=== PATIENT | female | born 1955 | race Caucasian/White ===

== ENCOUNTER 2020-09-20 22:29 | Inpatient (IN) | payer OTHER ==
[~2020-09-20] VITALS: Ht 165.1 cm; Wt 109.4 kg
--- NOTE | 2020-09-20 22:35 | NUR ---
Pt arrives from [place] via [facility]. Went to [place] urgent [facility] yesterday and was sent home with meds and diagnosis of bronchitis and kidney infection. Taking a shower that night pt said her right arm went suddenly numb, painful, and turned purple. 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 Was given heparin bolus and started on heparin drip. Satting well on RA, BP stable, IV in place, hooked up to monitor, MD at bedside. Presents with JVD distention on right side. Pt denies needs at this time.
[2020-09-20 23:25] LABS: BASOPHILS % (AUTO) 1 % (0-1); EOSINOPHILS % (AUTO) 1 % (1-7); LYMPHOCYTES % (AUTO) 6 % (22-44); MEAN CORPUSCULAR HEMOGLOBIN 29.4 pg (27.0-34.8); MEAN PLATELET VOLUME 7.8 fL (7.4-10.4); MONOCYTES % (AUTO) 9 % (2-9); NEUTROPHILS % (AUTO) 84 % (42-75); PLATELET COUNT 398 x10^3/uL (130-400); RED BLOOD COUNT 4.21 x10^6/uL (3.82-5.3); RED CELL DISTRIBUTION WIDTH 14.8 % (9.6-15.2)
[2020-09-20 23:26] LABS: ANION GAP 4 mmol/L (5-15); CALCIUM 8.5 mg/dL (8.5-10.1); CHLORIDE 107 mmol/L (98-107); CREATININE 0.62 mg/dL (0.55-1.02)
[2020-09-20 23:28] LABS: MD NO
[2020-09-20 23:31] LABS: INTERNATIONAL NORMALIZED RATIO 1.28 (0.93-1.1); PROTHROMBIN TIME 13.6 Seconds (9.6-11.5)
--- NOTE | 2020-09-20 23:49 | NUR ---
2nd IV started
[2020-09-21] MEDS ORDERED: MORPHINE SULFATE 4 MG/ML, 1ML IVPush PRN
[2020-09-21] MEDS ORDERED: PLEASE ENTER ALLERGIES MC SCH (00:30)
--- NOTE | 2020-09-21 00:41 | NUR ---
Report called to Kim.
--- NOTE | 2020-09-21 00:45 | NUR ---
Pt being transported to room 493 with tech and cardica monitor.
[2020-09-21 00:59] VITALS: BP 123/80
[2020-09-21] MEDS ORDERED: METOCLOPRAMIDE 5 MG/ML, 2ML IVPush PRN (01:00)
[2020-09-21] MEDS ORDERED: MELATONIN 5 MG TABLET PO PRN (01:00)
[2020-09-21] MEDS ORDERED: morphine SULFATE 10 MG/ML, 1ML IVPush PRN (01:00)
[2020-09-21] MEDS ORDERED: POLYETHYLENE GLYCOL 17 GM PACKET PO PRN (01:00)
[2020-09-21] MEDS ORDERED: PLEASE ENTER ACCURATE WEIGHT MC SCH (01:00)
[2020-09-21] MEDS ORDERED: PROMETHAZINE 25 MG/ML, 1ML IM PRN (01:00)
[2020-09-21] MEDS ORDERED: LABETALOL 5MG/ML, 20ML IVPush PRN (01:00)
[2020-09-21] MEDS ORDERED: ONDANSETRON 2MG/ML, 2ML IVPush PRN ×2 (01:00)
[2020-09-21] MEDS ORDERED: DOCUSATE 100 MG CAPSULE PO PRN (01:00)
[2020-09-21] MEDS ORDERED: hydrALAzine 20 MG/ML, 1ML IVPush PRN (01:00)
[2020-09-21] MEDS ORDERED: LACTATED RINGERS 1,000 ML IV SCH (01:00)
[2020-09-21] MEDS ORDERED: HEPARIN 5,000 UNITS/ML, 1ML IV ONE (01:30)
[2020-09-21] MEDS: HEPARIN 25,000 UNITS/250ML PMX 250 ML IV PRN (01:53)
[2020-09-21] MEDS: ACETAMINOPHEN 325 MG TABLET PO PRN ×2 (02:06→16:11)
[2020-09-21 04:31] VITALS: BP 130/86
[2020-09-21] MEDS: PANTOPRAZOLE 20MG TABLET PO SCH ×2 (05:20→16:05)
[2020-09-21] MEDS ORDERED: OMNIPAQUE 350 MG/ML, 150 ML BOTTLE ONE (08:30)
[2020-09-21] MEDS: SENNA/DOCUSATE TABLET PO SCH (09:15)
[2020-09-21] MEDS: HEPARIN 5,000 UNITS/ML, 1ML IV PRN ×3 (09:15→22:22)
[2020-09-21 10:10] VITALS: BP 126/72
[2020-09-21 13:43] VITALS: BP 114/75
[2020-09-21] MEDS: HYDROcodone/APAP 5/325 TABLET PO PRN (18:28)
[2020-09-21 19:22] VITALS: BP 128/87
[2020-09-22] MEDS: HEPARIN 25,000 UNITS/250ML PMX 250 ML IV PRN ×2 (00:44→22:22)
[2020-09-22 01:46] VITALS: BP 122/84
[2020-09-22 04:50] LABS: BASOPHILS % (AUTO) 1 % (0-1); EOSINOPHILS % (AUTO) 4 % (1-7); LYMPHOCYTES % (AUTO) 11 % (22-44); MEAN CORPUSCULAR HEMOGLOBIN 29.8 pg (27.0-34.8); MEAN CORPUSCULAR HGB CONC 33.3 g/dL (32.4-35.8); MEAN PLATELET VOLUME 7.5 fL (7.4-10.4); MONOCYTES % (AUTO) 11 % (2-9); NEUTROPHILS % (AUTO) 74 % (42-75); PLATELET COUNT 431 x10^3/uL (130-400); RED CELL DISTRIBUTION WIDTH 14.7 % (9.6-15.2)
[2020-09-22 04:51] LABS: MD NO
[2020-09-22 04:58] LABS: CHLORIDE 107 mmol/L (98-107)
[2020-09-22 05:13] LABS: ANION GAP 5 mmol/L (5-15); CALCIUM 8.9 mg/dL (8.5-10.1); CREATININE 0.67 mg/dL (0.55-1.02)
[2020-09-22] MEDS: PANTOPRAZOLE 20MG TABLET PO SCH ×2 (06:00→15:15)
[2020-09-22 07:58] VITALS: BP 115/71
[2020-09-22] MEDS: SENNA/DOCUSATE TABLET PO SCH (08:23)
[2020-09-22] MEDS: HYDROcodone/APAP 5/325 TABLET PO PRN ×2 (09:43→18:02)
[2020-09-22 12:17] VITALS: BP 119/78
[2020-09-22] MEDS: HEPARIN 5,000 UNITS/ML, 1ML IV PRN ×2 (15:20→22:22)
[2020-09-22 20:00] VITALS: BP 116/68
[2020-09-22] MEDS: ONDANSETRON 2MG/ML, 2ML IVPush PRN (21:41)
[2020-09-23 02:00] VITALS: BP 122/74
[2020-09-23 05:25] LABS: BASOPHILS % (AUTO) 1 % (0-1); EOSINOPHILS % (AUTO) 4 % (1-7); LYMPHOCYTES % (AUTO) 9 % (22-44); MD NO; MEAN CORPUSCULAR HEMOGLOBIN 29.7 pg (27.0-34.8); MEAN CORPUSCULAR HGB CONC 33.3 g/dL (32.4-35.8); MEAN PLATELET VOLUME 7.4 fL (7.4-10.4); MONOCYTES % (AUTO) 11 % (2-9); NEUTROPHILS % (AUTO) 77 % (42-75); PLATELET COUNT 418 x10^3/uL (130-400); RED BLOOD COUNT 4.01 x10^6/uL (3.82-5.3); RED CELL DISTRIBUTION WIDTH 14.4 % (9.6-15.2)
[2020-09-23 05:37] LABS: ANION GAP 2 mmol/L (5-15); CALCIUM 8.4 mg/dL (8.5-10.1); CHLORIDE 100 mmol/L (98-107); CREATININE 0.67 mg/dL (0.55-1.02)
[2020-09-23] MEDS: PANTOPRAZOLE 20MG TABLET PO SCH ×2 (06:00→16:01)
[2020-09-23 08:33] VITALS: BP 130/73
[2020-09-23] MEDS ORDERED: MIDAZOLAM 1 MG/ML, 5ML ONE ×2 (09:15)
[2020-09-23] MEDS ORDERED: LIDOCAINE 1%, 10ML ONE (09:15)
[2020-09-23] MEDS ORDERED: FLUMAZENIL 0.1 MG/1 ML, 5ML ONE (09:16)
[2020-09-23] MEDS ORDERED: NALOXONE 1 MG/ML, 2ML ONE (09:16)
[2020-09-23] MEDS ORDERED: FENTANYL PF 100 MCG/2ML ONE (09:16)
[2020-09-23] MEDS: SENNA/DOCUSATE TABLET PO SCH (10:28)
[2020-09-23] MEDS: ACETAMINOPHEN 325 MG TABLET PO PRN (12:38)
[2020-09-23 13:33] VITALS: BP 143/80
[2020-09-23 19:37] VITALS: BP 123/71
[2020-09-23] MEDS: HEPARIN 5,000 UNITS/ML, 1ML IV PRN (21:04)
[2020-09-23] MEDS: HEPARIN 25,000 UNITS/250ML PMX 250 ML IV PRN (21:05)
[2020-09-24 01:02] VITALS: BP 116/77
[2020-09-24 03:45] LABS: BASOPHILS % (AUTO) 1 % (0-1); EOSINOPHILS % (AUTO) 2 % (1-7); LYMPHOCYTES % (AUTO) 7 % (22-44); MEAN CORPUSCULAR HEMOGLOBIN 29.4 pg (27.0-34.8); MEAN CORPUSCULAR HGB CONC 33.3 g/dL (32.4-35.8); MEAN PLATELET VOLUME 7.5 fL (7.4-10.4); MONOCYTES % (AUTO) 11 % (2-9); NEUTROPHILS % (AUTO) 80 % (42-75); PLATELET COUNT 416 x10^3/uL (130-400); RED BLOOD COUNT 4.38 x10^6/uL (3.82-5.3); RED CELL DISTRIBUTION WIDTH 14.5 % (9.6-15.2)
[2020-09-24 03:46] LABS: MD NO
[2020-09-24] MEDS: HEPARIN 5,000 UNITS/ML, 1ML IV PRN (04:03)
[2020-09-24] MEDS: ACETAMINOPHEN 325 MG TABLET PO PRN ×2 (04:16→08:02)
[2020-09-24] MEDS: PANTOPRAZOLE 20MG TABLET PO SCH ×2 (05:19→18:04)
[2020-09-24 07:08] VITALS: BP 108/70
[2020-09-24] MEDS: PROMETHAZINE 25 MG/ML, 1ML IM PRN (08:00)
[2020-09-24] MEDS: SENNA/DOCUSATE TABLET PO SCH (11:14)
[2020-09-24] MEDS: HEPARIN 25,000 UNITS/250ML PMX 250 ML IV PRN (11:15)
[2020-09-24 13:14] VITALS: BP 118/72
[2020-09-24 18:35] VITALS: BP 137/78
[2020-09-24 21:30] VITALS: BP 134/80
[2020-09-25] VITALS (8 sets, daily range): BP systolic 113–141; BP diastolic 70–80
[2020-09-25] MEDS: HEPARIN 25,000 UNITS/250ML PMX 250 ML IV PRN ×2 (00:27→11:54)
[2020-09-25] MEDS: PANTOPRAZOLE 20MG TABLET PO SCH ×2 (05:53→16:58)
[2020-09-25] MEDS: ACETAMINOPHEN 325 MG TABLET PO PRN ×2 (08:31→19:51)
[2020-09-25] MEDS: SENNA/DOCUSATE TABLET PO SCH (08:33)
[2020-09-25] MEDS: TRAZODONE 50MG TABLET PO PRN (19:51)
[2020-09-26] VITALS (10 sets, daily range): BP systolic 108–126; BP diastolic 70–81
[2020-09-26] MEDS: HEPARIN 25,000 UNITS/250ML PMX 250 ML IV PRN ×2 (00:50→14:35)
[2020-09-26 05:47] LABS: ANION GAP 3 mmol/L (5-15); CALCIUM 9.4 mg/dL (8.5-10.1); CHLORIDE 101 mmol/L (98-107); CREATININE 0.55 mg/dL (0.55-1.02)
[2020-09-26] MEDS: PANTOPRAZOLE 20MG TABLET PO SCH ×2 (05:50→17:46)
[2020-09-26 06:03] LABS: BASOPHILS % (AUTO) 1 % (0-1); EOSINOPHILS % (AUTO) 5 % (1-7); LYMPHOCYTES % (AUTO) 10 % (22-44); MD NO; MEAN CORPUSCULAR HEMOGLOBIN 29.7 pg (27.0-34.8); MEAN CORPUSCULAR HGB CONC 33.6 g/dL (32.4-35.8); MEAN PLATELET VOLUME 7.5 fL (7.4-10.4); MONOCYTES % (AUTO) 11 % (2-9); NEUTROPHILS % (AUTO) 73 % (42-75); PLATELET COUNT 423 x10^3/uL (130-400); RED BLOOD COUNT 4.38 x10^6/uL (3.82-5.3); RED CELL DISTRIBUTION WIDTH 14.6 % (9.6-15.2)
[2020-09-26] MEDS: SENNA/DOCUSATE TABLET PO SCH (08:14)
[2020-09-26] MEDS: PROMETHAZINE 25 MG/ML, 1ML IM PRN (08:15)
[2020-09-26] MEDS: HYDROcodone/APAP 5/325 TABLET PO PRN ×3 (08:16→20:30)
[2020-09-26] MEDS: ACETAMINOPHEN 325 MG TABLET PO PRN (11:02)
[2020-09-26] MEDS ORDERED: HEPARIN 25,000 UNITS/250ML PMX 250 ML IV PRN (15:30)
[2020-09-26] MEDS: ONDANSETRON 2MG/ML, 2ML IVPush PRN (20:29)
[2020-09-26] MEDS: TRAZODONE 50MG TABLET PO PRN (20:29)
[2020-09-26] MEDS: APIXABAN 5 MG TABLET PO SCH (20:30)
[2020-09-26] MEDS ORDERED: APIXABAN 5 MG TABLET PO SCH (21:00)
[2020-09-27] VITALS (7 sets, daily range): BP systolic 104–118; BP diastolic 45–77
[2020-09-27] MEDS: ONDANSETRON 2MG/ML, 2ML IVPush PRN ×2 (02:32→10:41)
[2020-09-27] MEDS: HYDROcodone/APAP 5/325 TABLET PO PRN ×3 (02:33→22:51)
[2020-09-27] MEDS: PANTOPRAZOLE 20MG TABLET PO SCH ×3 (05:45→15:34)
[2020-09-27] MEDS: APIXABAN 5 MG TABLET PO SCH ×2 (09:46→21:08)
[2020-09-27] MEDS: SENNA/DOCUSATE TABLET PO SCH (09:46)
[2020-09-27] MEDS: DEXAMETHASONE 4 MG TABLET PO SCH (21:07)
[2020-09-28 00:20] VITALS: BP 130/75
[2020-09-28] MEDS: TRAZODONE 50MG TABLET PO PRN (00:52)
[2020-09-28 04:55] VITALS: BP 124/79
[2020-09-28 05:22] LABS: ANION GAP 3 mmol/L (5-15); CALCIUM 9.3 mg/dL (8.5-10.1); CHLORIDE 99 mmol/L (98-107)
[2020-09-28 05:23] LABS: CREATININE 0.65 mg/dL (0.55-1.02)
[2020-09-28] MEDS: PANTOPRAZOLE 20MG TABLET PO SCH ×2 (06:04→15:28)
[2020-09-28 07:07] LABS: BASOPHILS % (AUTO) 1 % (0-1); EOSINOPHILS % (AUTO) 0 % (1-7); LYMPHOCYTES % (AUTO) 4 % (22-44); MEAN CORPUSCULAR HEMOGLOBIN 29.7 pg (27.0-34.8); MEAN CORPUSCULAR HGB CONC 33.3 g/dL (32.4-35.8); MEAN PLATELET VOLUME 7.3 fL (7.4-10.4); MONOCYTES % (AUTO) 4 % (2-9); NEUTROPHILS % (AUTO) 91 % (42-75); PLATELET COUNT 335 x10^3/uL (130-400); RED BLOOD COUNT 4.56 x10^6/uL (3.82-5.3); RED CELL DISTRIBUTION WIDTH 14.1 % (9.6-15.2)
[2020-09-28 07:21] LABS: MD SCAN
[2020-09-28] MEDS: APIXABAN 5 MG TABLET PO SCH ×2 (07:55→19:48)
[2020-09-28] MEDS: DEXAMETHASONE 4 MG TABLET PO SCH (07:55)
[2020-09-28] MEDS: SENNA/DOCUSATE TABLET PO SCH (07:56)
[2020-09-28 08:10] VITALS: BP 134/77
[2020-09-28] MEDS ORDERED: DIPHENHYDRAMINE 50 MG/ML, 1ML IVPush ONE (09:30)
[2020-09-28] MEDS ORDERED: ONDANSETRON 16 MG, DEXAMETHASONE 12 MG in SODIUM CHLORIDE 0.9% 50 ML IVPB ONE (09:30)
[2020-09-28] MEDS ORDERED: FAMOTIDINE 20 MG/2 ML IVPush ONE (09:30)
[2020-09-28] MEDS ORDERED: [UNRECOGNIZED DRUG - OTHER] IV PRN (10:00)
[2020-09-28] MEDS ORDERED: SODIUM CHLORIDE 0.9% IV ONE ×2 (10:00→13:00)
[2020-09-28] MEDS ORDERED: PACLITAXEL IV ONE (10:00)
[2020-09-28 12:24] VITALS: BP 122/77
[2020-09-28] MEDS ORDERED: CARBOPLATIN IV ONE (13:00)
[2020-09-28 18:25] VITALS: BP_SYST 117; BP_SYST 130; BP_DIAS 60; BP_DIAS 74
[2020-09-28] MEDS: ONDANSETRON 2MG/ML, 2ML IVPush PRN (19:47)
[2020-09-28] MEDS: HYDROcodone/APAP 5/325 TABLET PO PRN (19:48)
[2020-09-29 00:45] VITALS: BP 112/79
[2020-09-29] MEDS: DEXAMETHASONE 4 MG TABLET PO SCH ×3 (05:55→17:47)
[2020-09-29] MEDS: PANTOPRAZOLE 20MG TABLET PO SCH ×2 (05:55→16:13)
[2020-09-29 07:51] LABS: BASOPHILS % (AUTO) 1 % (0-1); EOSINOPHILS % (AUTO) 0 % (1-7); LYMPHOCYTES % (AUTO) 5 % (22-44); MEAN CORPUSCULAR HGB CONC 32.6 g/dL (32.4-35.8); MEAN PLATELET VOLUME 7.8 fL (7.4-10.4); MONOCYTES % (AUTO) 6 % (2-9); NEUTROPHILS % (AUTO) 89 % (42-75); PLATELET COUNT 290 x10^3/uL (130-400); RED BLOOD COUNT 4.47 x10^6/uL (3.82-5.3); RED CELL DISTRIBUTION WIDTH 14.3 % (9.6-15.2)
[2020-09-29 08:02] LABS: ALANINE AMINOTRANSFERASE 33 U/L (12-78); ALBUMIN 2.8 g/dL (3.4-5.0); ANION GAP 4 mmol/L (5-15); CALCIUM 9.2 mg/dL (8.5-10.1); CHLORIDE 98 mmol/L (98-107); CREATININE 0.63 mg/dL (0.55-1.02)
[2020-09-29 08:04] LABS: ALKALINE PHOSPHATASE 52 U/L (45-117); BILIRUBIN,TOTAL 0.2 mg/dL (0.2-1.0)
[2020-09-29 08:11] VITALS: BP 130/85
[2020-09-29 08:14] LABS: MD SCAN
[2020-09-29] MEDS: APIXABAN 5 MG TABLET PO SCH ×2 (08:47→20:39)
[2020-09-29] MEDS: HYDROcodone/APAP 5/325 TABLET PO PRN ×4 (08:47→19:37)
[2020-09-29] MEDS: ONDANSETRON ODT 4 MG PO SCH ×4 (08:47→20:39)
[2020-09-29] MEDS: SENNA/DOCUSATE TABLET PO SCH (08:47)
[2020-09-29 14:07] VITALS: BP 120/77
[2020-09-29] MEDS: TRAZODONE 50MG TABLET PO PRN (17:58)
[2020-09-29 19:13] VITALS: BP 118/76
[2020-09-29] MEDS: ONDANSETRON 2MG/ML, 2ML IVPush PRN (19:37)
[2020-09-30] MEDS: DEXAMETHASONE 4 MG TABLET PO SCH ×4 (00:10→16:38)
[2020-09-30] MEDS: ONDANSETRON ODT 4 MG PO SCH ×4 (02:33→21:01)
[2020-09-30 02:52] VITALS: BP 125/86
[2020-09-30] MEDS: PANTOPRAZOLE 20MG TABLET PO SCH ×2 (06:05→16:38)
[2020-09-30 07:45] VITALS: BP 137/86
[2020-09-30] MEDS: APIXABAN 5 MG TABLET PO SCH ×2 (08:14→21:01)
[2020-09-30] MEDS: SENNA/DOCUSATE TABLET PO SCH (08:15)
[2020-09-30] MEDS: HYDROcodone/APAP 5/325 TABLET PO PRN ×2 (08:20→19:24)
[2020-09-30] MEDS: MAGNESIUM HYDROXIDE 8%, 30ML UDC PO SCH (13:25)
[2020-09-30 14:35] VITALS: BP 111/72
[2020-09-30 19:35] VITALS: BP 132/83
[2020-09-30] MEDS: TRAZODONE 50MG TABLET PO PRN (21:01)
[2020-10-01] MEDS: HYDROcodone/APAP 5/325 TABLET PO PRN ×3 (00:38→11:53)
[2020-10-01] MEDS: DEXAMETHASONE 4 MG TABLET PO SCH ×2 (00:38→06:45)
[2020-10-01 00:47] VITALS: BP 120/78
[2020-10-01] MEDS: ONDANSETRON ODT 4 MG PO SCH ×2 (04:13→08:00)
[2020-10-01 05:58] LABS: BASOPHILS % (AUTO) 0 % (0-1); EOSINOPHILS % (AUTO) 0 % (1-7); LYMPHOCYTES % (AUTO) 4 % (22-44); MEAN CORPUSCULAR HEMOGLOBIN 29.3 pg (27.0-34.8); MEAN PLATELET VOLUME 8.2 fL (7.4-10.4); MONOCYTES % (AUTO) 3 % (2-9); NEUTROPHILS % (AUTO) 93 % (42-75); PLATELET COUNT 261 x10^3/uL (130-400); RED BLOOD COUNT 4.49 x10^6/uL (3.82-5.3); RED CELL DISTRIBUTION WIDTH 14.2 % (9.6-15.2)
[2020-10-01 06:02] LABS: MD NO
[2020-10-01 06:11] LABS: CHLORIDE 96 mmol/L (98-107)
[2020-10-01 06:19] LABS: ALANINE AMINOTRANSFERASE 28 U/L (12-78); ALBUMIN 2.8 g/dL (3.4-5.0); ALKALINE PHOSPHATASE 47 U/L (45-117); ANION GAP 7 mmol/L (5-15); BILIRUBIN,TOTAL 0.2 mg/dL (0.2-1.0); CREATININE 0.57 mg/dL (0.55-1.02); TOTAL PROTEIN 7.4 g/dL (6.4-8.2)
[2020-10-01] MEDS: PANTOPRAZOLE 20MG TABLET PO SCH (06:45)
[2020-10-01 07:51] VITALS: BP 128/78
[2020-10-01] MEDS: APIXABAN 5 MG TABLET PO SCH (08:00)
[2020-10-01] MEDS: MAGNESIUM HYDROXIDE 8%, 30ML UDC PO SCH (08:00)
[2020-10-01] MEDS: SENNA/DOCUSATE TABLET PO SCH (08:00)
[2020-10-01] MEDS ORDERED: ONDA4TAB13 PO (08:39)
[2020-10-01] MEDS ORDERED: HYDR-1067 PO (08:39)
[2020-10-01] MEDS ORDERED: TRAZ50TA66 PO (08:39)
[2020-10-01] MEDS ORDERED: PANT20TA4 PO (08:39)
[2020-10-01] MEDS ORDERED: MAGN400O7 PO (08:39)
[2020-10-01] MEDS ORDERED: DEXA4TAB66 PO (08:39)
[2020-10-01] MEDS ORDERED: APIX5TAB PO (08:39)
[2020-10-01] MEDS: ONDANSETRON 2MG/ML, 2ML IVPush PRN (11:54)
== END 2020-10-01 12:24 | DRG 754 ==
LOC: ED 23:15 → EDIP 23:56 → 4EST 09-21 00:48 → 4NW 09-27 14:36
PROVIDERS: ADMIT Family Medicine; ATTEND Internal Medicine
PROC: 0BBC3ZX Excision of Right Upper Lung Lobe, Percutaneous Approach, Diagnostic (ICD-10-PCS; principal; 2020-09-23)
DX: C54.1 Malignant neoplasm of endometrium (principal); I26.99 Other pulmonary embolism without acute cor pulmonale; J96.01 Acute respiratory failure with hypoxia; C34.90 Malignant neoplasm of unspecified part of unspecified bronchus or lung; D68.69 Other thrombophilia; E87.1 Hypo-osmolality and hyponatremia; I50.32 Chronic diastolic (congestive) heart failure; I82.B11 Acute embolism and thrombosis of right subclavian vein; Z68.41 Body mass index [BMI] 40.0-44.9, adult; I82.C11 Acute embolism and thrombosis of right internal jugular vein; I82.210 Acute embolism and thrombosis of superior vena cava; D63.8 Anemia in other chronic diseases classified elsewhere; D72.829 Elevated white blood cell count, unspecified; E66.9 Obesity, unspecified; I27.20 Pulmonary hypertension, unspecified; I77.819 Aortic ectasia, unspecified site; K59.00 Constipation, unspecified; L68.0 Hirsutism; Z79.01 Long term (current) use of anticoagulants; Z79.899 Other long term (current) drug therapy; Z99.81 Dependence on supplemental oxygen
CPT/HCPCS: 36415; 99291; J3490; 32408; 70460; 71275; 74177; 77012; 78582; 80048; 80053; 82040; 83036; 83735; 84443; 85025; 85520; 85610; 85730; 86304; 88305; 88333; 88341; 88342; 93005; 93306; 93356; 99156; 99157; G0378; J1100; J1644; J2250; J2405; J2550; J3010; J9045; J9267; Q0162; Q9967; A9540; A9558; J1200; J2310; J2765; J7040; J7120

== ENCOUNTER 2021-01-14 08:00 | Emergency (ER) | payer OTHER ==
[~2021-01-14] VITALS: Ht 165.1 cm; Wt 73.0 kg
[~2021-01-14 08:00] MED LIST: APIX5TAB PO; DEXA4TAB66 PO; HYDR-2214 PO; MAGN400O7 PO; ONDA4TAB13 PO; PANT20TA4 PO; TRAZ50TA66 PO
--- NOTE | 2021-01-14 08:20 | NUR ---
PATIENT STRAIGHT BACK, WAS CODE 250. PATIENT HERE FOR INFUSION AND WHILE WALKING IN FOR APPOINTMENT SHE TRIPPED AND FELL ON SIDEWALK HITTING THE BACK OF HER HEAD. DENIES LOC, IS ON BLOOD THINNERS DUE TO HISTORY OF BLOOD CLOTS. DAUGHTER AT BEDSIDE, CONNECTED TO MONITORS, VSS, NADN, PATIENT REPORTS 1/10 HEAD PAIN. LARGE HEMATOMA AND SMALL ABRASION NOTED TO POSTERIOR HEAD, CALL LIGHT WITHIN REACH.
--- NOTE | 2021-01-14 09:11 | NUR ---
ERMD AT BEDSIDE TO DISCUSS POC.
--- NOTE | 2021-01-14 09:22 | NUR ---
PATIENT RESTING IN GURNEY, DAUGHTER AT BEDSIDE, CONNECTED TO MONITOR, VSS, CALL LIGHT WITHIN REACH, NO FURTHER NEEDS AT THIS TIME.
--- NOTE | 2021-01-14 09:54 | NUR ---
PATIENT TO MRI.
--- NOTE | 2021-01-14 10:29 | NUR ---
PATIENT STILL IN MRI.
--- NOTE | 2021-01-14 11:21 | NUR ---
PATIENT BACK IN ROOM, RESTING IN [facility], CONNECTED TO MONITOR, VSS, DAUGHTER AT BEDSIDE, CALL LIGHT WITHIN REACH. WAITING FOR MRI RESULTS.
[2021-01-14 12:04] VITALS: BP 136/86
--- NOTE | 2021-01-14 12:31 | NUR ---
Spoke with infusion center, patient cannot be seen today, scheduled for 01/16/2021 at 0830, patient and daughter informed of appt time. Patient given discharge instructions and taxi voucher and they have confirmed that they understand the instructions. Patient wheeled with walker by daughter. NAD, all questions answered appropriately, denies additional needs at this time. No personal belongings left in room after discharge.
== END 2021-01-14 12:32 | disposition home or self-care (01) ==
LOC: ED 09:06
DX: S00.03XA Contusion of scalp, initial encounter (principal); S09.90XA Unspecified injury of head, initial encounter; M54.2 Cervicalgia; M54.6 Pain in thoracic spine; Z79.01 Long term (current) use of anticoagulants; Z86.718 Personal history of other venous thrombosis and embolism; W01.0XXA Fall on same level from slipping, tripping and stumbling without subsequent striking against object, initial encounter; Y93.89 Activity, other specified; Y92.410 Unspecified street and highway as the place of occurrence of the external cause; Y99.8 Other external cause status
CPT/HCPCS: 70450; 72125; 72141; 72146; 99285